=== PATIENT | male | born 1965 | race Caucasian/White ===

== ENCOUNTER 2017-09-15 01:15 | Emergency (ER) | payer BC ==
[2017-09-15] MEDS: diphenhydrAMINE 50 MG/ML VIAL IVP (01:40)
[2017-09-15] MEDS: FAMOTIDINE 20 MG/2 ML VIAL IVP (01:41)
[2017-09-15] MEDS: methylPREDNISolone SOD SUCC PF 125 MG/2 ML VIAL. IV (01:41)
== END 2017-09-15 03:51 | disposition home or self-care (01) ==
LOC: ER 01:15
DX: T78.1XXA Other adverse food reactions, not elsewhere classified, initial encounter (principal); F41.9 Anxiety disorder, unspecified; J45.909 Unspecified asthma, uncomplicated; Z98.1 Arthrodesis status; Z96.659 Presence of unspecified artificial knee joint; Z91.041 Radiographic dye allergy status; Z91.018 Allergy to other foods; X58.XXXA Exposure to other specified factors, initial encounter
CPT/HCPCS: 96374; 96375; 96376; 99284-25; J1200; J2060; J2930; S0028